=== PATIENT | female | born 1975 | race Hispanic/Latino ===

== ENCOUNTER 2021-02-15 08:13 | Outpatient (CLI) | payer BC | END 2021-02-15 08:14 | disposition home or self-care (01) | LOC: CSHMAMMO 08:13 | PROVIDERS: ATTEND Internal Medicine Rheumatology | DX: Z12.31 Encounter for screening mammogram for malignant neoplasm of breast (principal) | CPT/HCPCS: 77063; 77067 ==

== ENCOUNTER 2022-02-18 13:23 | Outpatient (CLI) | payer BC | END 2022-02-18 13:24 | disposition home or self-care (01) | LOC: CSHMAMMO 13:23 | PROVIDERS: ATTEND Family Medicine | DX: Z12.31 Encounter for screening mammogram for malignant neoplasm of breast (principal) | CPT/HCPCS: 77063; 77067 ==

== ENCOUNTER 2022-04-07 21:25 | Observation (INO) | payer BC ==
[2022-04-07] MEDS ORDERED: predniSONE 20 MG TAB ONE (22:17)
[2022-04-07] MEDS ORDERED: valACYclovir 500 MG TAB PO SCH (22:30)
[2022-04-07 22:40] LABS: #Eosinphils 0.1 10x3/uL (0.0-0.5); #Monocytes 0.5 10x3/uL (0.0-1.1); %Basophils 0.3 % (0.0-2.0); %Eosinophils 1.6 % (0.0-6.0); %Lymphocytes 26.5 % (18.0-47.0); %Monocytes 7.3 % (0.0-10.0); Hemoglobin 11.4 g/dL (12.0-15.5); Mean Corpuscular HGB CONC 33.9 g/dL (32.0-36.0); Mean Corpuscular Hemoglobin 28.7 pg (27.0-33.0); Mean Corpuscular Volume 84.6 fl (81.6-98.3); Mean Platelet Volume 10.3 fl (7.4-10.4); Platelet Count 255 10x3/uL (150-450); RBC Distribution Width 13.1 % (11.5-14.5); Red Blood Cell (RBC) Count 3.97 10x6/uL (3.90-5.03); White Blood Cell (WBC) Count 6.3 10x3/uL (3.5-10.5)
[2022-04-07 22:54] LABS: INR-International Normal Ratio 0.9; PTT 27.3 sec (22.0-33.0); Prothrombin Time 10.3 sec (9.5-12.1)
[2022-04-07 23:03] LABS: ALT (SGPT) 22 U/L (8-55); AST (SGOT) 18 U/L (5-34); Albumin 4.1 g/dL (3.5-5.0); Alkaline Phosphatase 74 U/L (40-110); Anion Gap 14 mmol/L (10-20); BUN (Urea Nitrogen) 17 mg/dL (7.0-18.7); Bilirubin, Total 0.2 mg/dL (0.2-1.2); CK (CPK) 107 U/L (29-168); Calc. Creatinine Clearance 0 mL/min (70-130); Calcium 9.4 mg/dL (7.8-10.44); Carbon Dioxide 24 mmol/L (22-29); Chloride 108 mmol/L (98-107); Estimated GFR 98; Globulin 3.3 g/dL (2.4-3.5); Glucose 119 mg/dL (70-105); Potassium 3.5 mmol/L (3.5-5.1); Protein, Total 7.4 g/dL (6.0-8.3); Sodium 142 mmol/L (136-145)
[2022-04-07 23:21] LABS: Bilirubin Neg (Negative); Blood, Urine Negative (Negative); Clarity Slightly Cloudy (Clear); Glucose, Urine (Dipstick) Normal (Negative); Ketone, Urine Negative (Negative); Leukocyte 25 (Negative); Nitrite Positive (Negative); Protein, Urine (Dipstick) Negative (Neg-Trace); Specific Gravity, Urine 1.015 (1.005-1.030); Urobilinogen Normal mg/dL (Less than 2); pH, Urine 6.5 (5.0-9.0)
[2022-04-07 23:37] LABS: RBC/HPF None Seen HPF (0-3)
[2022-04-07 23:38] LABS: Bacteria/HPF 3+ HPF (None Seen); Squamous Epithelial 0-3 HPF (0-3)
[2022-04-07] MEDS ORDERED: Aspirin Chewable 81 MG TAB ONE (23:44)
[2022-04-08 03:13] LABS: SARS-CoV-2 NAA Rapid Test Not Detected (NotDetected)
[2022-04-08 04:17] LABS: Cardiac Risk 3.3 (Less than 4.5); Cholesterol 156 mg/dl (< 200 Desired); HDL Cholesterol 48 mg/dL (>60 Neg Risk); LDL Cholesterol, Calculated 93 mg/dL; Triglycerides 73 mg/dL (Less than 150)
[2022-04-08 06:04] LABS: Amphetamine Detected (NotDetected); Barbiturates Screen Not Detected (NotDetected); Benzodiazepine Screen Not Detected (NotDetected); Cocaine Metabolite Screen Not Detected (NotDetected); Methadone Not Detected (NotDetected); Methamphetamine Not Detected (NotDetected); Opiate Screen Not Detected (NotDetected); Oxycodone Screen Not Detected (NotDetected); Phencyclidine (PCP) Not Detected (NotDetected); THC/Cannabinoid Screen Not Detected (NotDetected); Tricyclic Screen Not Detected (NotDetected)
[2022-04-08] MEDS ORDERED: Cephalexin 250 MG CAP ONE ×2 (06:34→11:47)
[2022-04-08] MEDS: Cephalexin 250 MG CAP PO SCH ×3 (06:38→17:02)
[2022-04-08] MEDS ORDERED: Aspirin Chewable 81 MG TAB ONE (08:20)
[2022-04-08] MEDS ORDERED: Amlodipine 5 MG TAB ONE (08:21)
[2022-04-08] MEDS ORDERED: predniSONE 20 MG TAB ONE (08:21)
[2022-04-08] MEDS ORDERED: Losartan 25 MG TAB ONE (08:23)
[2022-04-08] MEDS: predniSONE 20 MG TAB PO SCH (08:50)
[2022-04-08] MEDS: Aspirin 81 mg Enteric Coated Tablet PO SCH (08:50)
[2022-04-08] MEDS: valACYclovir 500 MG TAB PO SCH ×3 (08:50→21:04)
[2022-04-08] MEDS ORDERED: Mycophenolate 250 MG CAP PO SCH (09:00)
[2022-04-08] MEDS ORDERED: Amlodipine 5 MG TAB PO SCH (09:00)
[2022-04-08] MEDS ORDERED: Losartan 25 MG TAB PO SCH (09:00)
[2022-04-08] MEDS ORDERED: Hydroxychloroquine Sulfate 200 MG TAB PO SCH (09:30)
[2022-04-08 13:03] LABS: Hemoglobin A1c 5.4 % (4.0-6.0)
[2022-04-08] MEDS ORDERED: FLU VACC QS2022-23(6MOS UP)/PF 60 MCG/0.5 ML SYRINGE IM ONE (13:30)
[2022-04-08 14:16] VITALS: BMI 37.2
[2022-04-08] MEDS: Mycophenolate 250 MG CAP PO SCH ×2 (14:55→21:04)
[2022-04-08] MEDS: cycloSPORINE, Modified 25 MG CAP PO SCH (21:04)
[2022-04-09] MEDS: Cephalexin 250 MG CAP PO SCH ×2 (05:17)
[2022-04-09 06:21] LABS: Pregnancy Test - Urine (BHCG) Negative (Negative)
[2022-04-09 06:22] LABS: Pregu Control Background? CLEAR/WHITE (CLR/WHITE); Pregu Control Bar Appear? YES (CONTROL BAR)
[2022-04-09] MEDS ORDERED: Amlodipine 5 MG TAB PO SCH (09:00)
[2022-04-09] MEDS ORDERED: Losartan 25 MG TAB PO SCH (09:00)
[2022-04-09] MEDS: predniSONE 20 MG TAB PO SCH (10:05)
[2022-04-09] MEDS: Aspirin 81 mg Enteric Coated Tablet PO SCH (10:05)
[2022-04-09] MEDS: Mycophenolate 250 MG CAP PO SCH (10:06)
[2022-04-09] MEDS: valACYclovir 500 MG TAB PO SCH (10:30)
[2022-04-09] MEDS: cycloSPORINE, Modified 25 MG CAP PO SCH (10:31)
[2022-04-09 11:31] VITALS: BP 135/68; TEMP 98.3
[2022-04-10] MEDS ORDERED: Hydroxychloroquine Sulfate 200 MG TAB PO SCH (09:00)
== END 2022-04-09 11:55 | disposition home or self-care (01) ==
LOC: CSHERS 21:25 → CSHERHOLD 04-08 01:36 → CSHTELE 04-08 13:16
PROVIDERS: ADMIT Emergency Medicine; ATTEND Internal Medicine
DX: G51.0 Bell's palsy (principal); R53.1 Weakness; R20.0 Anesthesia of skin; I10 Essential (primary) hypertension; E66.9 Obesity, unspecified; Z68.38 Body mass index [BMI] 38.0-38.9, adult; Z20.822 Contact with and (suspected) exposure to COVID-19; N39.0 Urinary tract infection, site not specified; Z79.899 Other long term (current) drug therapy; Z79.82 Long term (current) use of aspirin; M33.90 Dermatopolymyositis, unspecified, organ involvement unspecified
CPT/HCPCS: 36415; 36416; 70450; 70551; 71045; 80053; 80061; 80306; 81003; 81015; 81025; 82550; 83036; 83735; 84443; 84484; 85025; 85610; 85652; 85730; 87077; 87086; 87186; 93005; 93306; 93880; 96372; G0378; J1650; J7512; J7515; J7517; U0002

== ENCOUNTER 2023-02-24 08:20 | Outpatient (CLI) | payer BC | END 2023-02-24 08:21 | disposition home or self-care (01) | LOC: CSHMAMMO 08:20 | PROVIDERS: ATTEND Family Medicine | DX: Z12.31 Encounter for screening mammogram for malignant neoplasm of breast (principal) | CPT/HCPCS: 77063; 77067 ==